=== PATIENT | female | born 1945 | race Two or more races ===

== ENCOUNTER 2017-09-19 06:55 | Day surgery (SDC) | payer OTHER ==
[~2017-09-19 06:55] MED LIST: ALLEGRA; VERAPAMIL; [UNRECOGNIZED DRUG - OTHER]
== END 2017-09-19 12:50 | disposition home or self-care (01) ==
LOC: AMB-ENDOS 06:55
DX: K57.30 Diverticulosis of large intestine without perforation or abscess without bleeding (principal)

== ENCOUNTER → 2020-11-17 | Day surgery (SDC) | payer OTHER | END | disposition home or self-care (01) | LOC: ADM 11-14 14:45 → AMB-ENDOS 06:15 | PROVIDERS: ATTEND Surgery | DX: D12.2 Benign neoplasm of ascending colon (principal) ==